=== PATIENT | female | born 1945 | race Caucasian/White ===

== ENCOUNTER 2018-03-16 12:22 | Outpatient (CLI) | payer MEDICARE, BC, OTHER ==
[2018-03-16 13:43] LABS: #Eosinphils 0.1 thou/uL (0.0-0.7); #Lymphocytes 1.8 thou/uL (1.20-3.40); #Monocytes 0.7 thou/uL (0.11-0.59); #Neutrophils 7.7 thou/uL (1.40-6.50); %Basophils 0.4 % (0.0-1.0); %Eosinophils 0.6 % (0.0-10.0); %Lymphocytes 17.8 % (21.0-51.0); %Monocytes 6.5 % (0.0-10.0); %Neutrophils 74.8 % (42.0-75.0); Bilirubin Negative (Negative); Blood, Urine Negative (Negative); Clarity CLOUDY (Clear); Glucose, Urine (Dipstick) Negative (Negative); Hemoglobin 13.8 g/dL (12.0-16.0); Leukocyte Large (Negative); Mean Corpuscular HGB CONC 34.7 g/dL (32.0-36.0); Mean Corpuscular Hemoglobin 32.4 pg (27.0-31.0); Mean Corpuscular Volume 93.4 fL (78.0-98.0); Mean Platelet Volume 6.6 fL (7.4-10.4); Nitrite Negative (Negative); Platelet Count 306 thou/uL (130-400); Protein, Urine (Dipstick) Negative (Neg-Trace); RBC Distribution Width 12.2 % (11.5-14.5); Red Blood Cell (RBC) Count 4.27 mill/uL (4.20-5.40); Specific Gravity, Urine 1.025 (1.002-1.036); Urobilinogen 0.2 mg/dL (0.2-1.0); White Blood Cell (WBC) Count 10.3 thou/uL (4.8-10.8); pH, Urine 5.5 (5.0-9.0)
[2018-03-16 13:53] LABS: INR-International Normal Ratio 0.9; Prothrombin Time 12.1 SEC (12.0-14.7)
[2018-03-16 14:06] LABS: Anion Gap 13 mmol/L (10-20); BUN (Urea Nitrogen) 20 mg/dL (9.8-20.1); Calc. Creatinine Clearance 0 mL/min (70-130); Calcium 9.9 mg/dL (7.8-10.44); Carbon Dioxide 27 mmol/L (23-31); Chloride 104 mmol/L (98-107); Estimated GFR-MDRD 81; Glucose 104 mg/dL (83-110); Potassium 4.4 mmol/L (3.5-5.1); Sodium 140 mmol/L (136-145)
[2018-03-16 14:13] LABS: Bacteria/HPF None Seen HPF (None Seen); Hyaline Casts/LPF NONE SEEN LPF (0-3 Hyaline); RBC/HPF 0-3 HPF (0-3); Squamous Epithelial 0-3 HPF (0-3)
== END 2018-03-16 12:23 | disposition home or self-care (01) ==
LOC: LABBT 12:22
PROVIDERS: ATTEND Orthopaedic Surgery
DX: Z01.818 Encounter for other preprocedural examination (principal); M17.11 Unilateral primary osteoarthritis, right knee
CPT/HCPCS: 80048; 81001; 85025; 85610; 86850; 86900; 86901; 87081; 87086; 93005; 93010

== ENCOUNTER 2018-03-20 05:28 | Day surgery (SDC) | payer MEDICARE, BC, OTHER ==
[2018-03-16 12:42] VITALS: BMI 25.4
[2018-03-20] MEDS ORDERED: Sodium Chloride 0.9% 100 ML ONE (06:10)
[2018-03-20] MEDS ORDERED: CEFAZOLIN/Water 2 GM/20 ML SYRINGE ONE (06:11)
[2018-03-20] MEDS ORDERED: Midazolam HCl 2 mg/2 ml Vial ONE (06:35)
[2018-03-20] MEDS ORDERED: Fentanyl 100 MCG/2 ML VIAL ONE ×4 (06:35→09:57)
[2018-03-20] MEDS ORDERED: Lidocaine 1% (PF) 30 ML VIAL ONE (06:36)
[2018-03-20] MEDS ORDERED: Ropivacaine 0.5% HCl/PF (150 MG/30 ML VIAL) ONE (06:36)
[2018-03-20] MEDS ORDERED: Promethazine HCl 25 MG/ML VIAL IM PRN ×3 (07:27→09:50)
[2018-03-20] MEDS ORDERED: Zolpidem Tartrate 5 MG TAB PO PRN ×2 (07:27→07:37)
[2018-03-20] MEDS ORDERED: Fentanyl 100 MCG/2 ML VIAL SLOW IVP PRN (07:27)
[2018-03-20] MEDS ORDERED: HYDROcodone/Acetaminophen 10/325 mg Tablet PO PRN ×2 (07:27)
[2018-03-20] MEDS ORDERED: traMADol HCl 50 MG TAB PO PRN ×2 (07:27→07:37)
[2018-03-20] MEDS ORDERED: Acetaminophen 325 MG TAB PO PRN (07:27)
[2018-03-20] MEDS ORDERED: diphenhydrAMINE 25 MG CAP PO PRN (07:27)
[2018-03-20] MEDS ORDERED: Ondansetron HCl/PF 4 MG/2 ML Vial IVP PRN ×3 (07:27→09:50)
[2018-03-20] MEDS ORDERED: Tranexamic Acid 1,000 MG in Sodium Chloride 0.9% 100 ML IVPB SCH (07:30)
[2018-03-20] MEDS ORDERED: Acetaminophen/Codeine 30-300mg Tablet PO PRN (07:36)
[2018-03-20] MEDS ORDERED: Ropivacaine HCl/PF 250 ML in Premix Bag 1 BAG NERVE BLCK SCH (07:37)
[2018-03-20] MEDS ORDERED: Ketorolac Tromethamine 30 MG/ML VIAL IVP PRN (07:37)
[2018-03-20] MEDS ORDERED: Fentanyl 100 MCG/2 ML VIAL IV PRN (07:38)
[2018-03-20] MEDS ORDERED: Bupivacaine/Epinephrine 0.25% 30 ML VIAL ONE (07:54)
[2018-03-20] MEDS ORDERED: Bupivacaine PF 0.5% 30 ML VIAL ONE (07:56)
[2018-03-20] MEDS ORDERED: Exenatide Microspheres [Bydureon Pen] 2 MG SC SCH (08:15)
--- NOTE | 2018-03-20 09:28 | OP ---
DATE OF PROCEDURE: 03/20/2018 PREOPERATIVE DIAGNOSIS: Right knee osteoarthrosis. POSTOPERATIVE DIAGNOSIS: Right knee osteoarthrosis. PROCEDURE PERFORMED: Right total knee replacement using Quu pinless navigation. SURGEON: Leonardo Robins M.D. JEWEL GRINDER: Lars Boone PA-C. BLOOD LOSS: Minimal. COMPLICATIONS: None. ANESTHETIC: The patient did have a general anesthetic; she also had preoperative blocks. IMPLANTS: To the right knee, Sharon [employer]lon total knee system, the femur was a size 3 cruciate-re taining femur. We used a size 3 universal tibial baseplate. We used a 3 x 9 mm CS tibial-bearing an d we used a 27 x 8 symmetric X3 patella. DISPOSITION: She did go to recovery room in stable condition. INDICATIONS: This 72-year-old female comes in complaining of increasing pain over the last 6 months or so and constant swelling in the right knee. She has had injections, and at this time is presentin for knee replacement. PROCEDURE IN DETAIL: After all appropriate consent forms were explained and signed, the patient was taken back to the Operating Room and at this time was given general anesthetic. Once the level of an esthesia was appropriate, a well-padded tourniquet was placed on the right leg and the leg was then p repped and draped in standard surgical fashion. The limb was exsanguinated and tourniquet taken up t o 300 mmHg. Midline incision was made with a 10 blade down through the skin and subcutaneous tissue. Bovie electrocautery was used to coagulate any brisk venous bleeding. A new blade was used to make a medial parapatellar arthrotomy. Small subperiosteal release was performed medially and excess fat pad was removed. The knee was flexed up to gain access to the femur. The femur was navigated and d istal femoral resection was made. Epicondylar access was used to align our sizing jig and this was p inned in place. We sized our femur to be a size 3 cruciate-retaining femur, 4:1 cutting block was ap plied and pinned. Anterior and posterior chamfer cuts were then made. We navigated out our proximal tibia and made our proximal tibial resection. Spreaders were used to remove any posterior osteophyt es off the back of the femur as well as remaining meniscal tissue. A long alignment abdullahi was then use d to achieve correct rotation of our tibial baseplate and a size 3 universal tibial baseplate was karol silverman. This was pinned in place. We trialed the polyethylene and a 3 x 9 mm CS tibial-bearing polyeth ylene gave us full extension and good stability throughout range of motion. Two towel clips and a sa w were used to cut our patella. Three lug nuts were drilled and 27 x 8 symmetric X3 patella was tria led, which sat nicely in the trochlear groove. We then drilled our femur and punched our tibia. All components were removed. The knee was thoroughly irrigated and dried. Cement was mixed into the ce ment gun on the back table. Components were then placed. The knee was held out in full extension un til the cement had dried. All excess bone cement was removed. Multiple #2 Vicryl stitches as well a s a Quill was used to close our extensor mechanism. 0 Quill followed by a running Monoderm was then used to close the skin. Surgicel glue was then used on the skin. Once this had dried, soft tissue d ressing was applied to the limb, tourniquet was let down, and the toes pinked up nicely. The patient was then awakened and taken to the Recovery Room in stable condition. All counts were correct at th e end of the case. The patient did receive preoperative IV antibiotics. The patient was injected wi th Exparel for postoperative pain relief.
[2018-03-20] MEDS ORDERED: Promethazine HCl 25 MG/ML VIAL ONE (09:40)
[2018-03-20] MEDS ORDERED: Promethazine HCl 25 MG/ML VIAL SLOW IVP PRN (09:50)
[2018-03-20] MEDS ORDERED: Bupivacaine 0.25% HCL 30 ML VIAL ONE (10:38)
[2018-03-20] MEDS ORDERED: Lidocaine 1% PF 5 ML VIAL ONE (10:46)
[2018-03-20] MEDS ORDERED: PHENYLEPHRINE-NS 100 MCG/ML 10 ML SYRINGE ONE (10:46)
[2018-03-20] MEDS ORDERED: Ondansetron HCl/PF 4 MG/2 ML Vial ONE (10:46)
[2018-03-20] MEDS ORDERED: PROPOFOL 200 MG/20 ML VIAL ONE (10:46)
[2018-03-20] MEDS: Acetaminophen/Codeine 30-300mg Tablet PO PRN ×2 (11:49→18:11)
[2018-03-20] MEDS: Aspirin 81 mg Enteric Coated Tablet PO SCH ×2 (11:58→22:00)
[2018-03-20] MEDS ORDERED: Dextrose 5% in Water 1,000 ML IV PRN (13:23)
[2018-03-20] MEDS ORDERED: Insulin Regular 300 UNITS/3 ML VIAL SC PRN (13:23)
[2018-03-20] MEDS ORDERED: Dextrose 50% Abboject 50 ML SYRINGE SLOW IVP PRN (13:23)
[2018-03-20] MEDS ORDERED: CEFAZOLIN/Water 2 GM/20 ML SYRINGE SLOW IVP SCH (14:00)
[2018-03-20] MEDS: Ketorolac Tromethamine 30 MG/ML VIAL IVP SCH ×2 (16:06→22:00)
[2018-03-20] MEDS: traMADol HCl 50 MG TAB PO PRN (16:07)
[2018-03-20] MEDS: CEFAZOLIN/Water 2 GM/20 ML SYRINGE SLOW IVP SCH (16:08)
[2018-03-20] MEDS: Sodium Chloride 0.9% 1,000 ML IV SCH ×2 (16:34→19:54)
--- NOTE | 2018-03-20 18:52 | CON ---
DATE OF SERVICE: 03/20/2018 ADMITTING PHYSICIAN: Leonardo Robins M.D. CONSULTING PHYSICIAN: David Luna M.D. HISTORY OF PRESENT ILLNESS: The patient is a 72-year-old female status post right total knee replace ment surgery. She has a history of type 2 diabetes mellitus which has been well controlled over the last 2 years. She reports no medical complaints since her surgery and no medical complaints at this time. She reports no cough, shortness of breath, chest pain, otherwise. ALLERGIES: She is allergic to MORPHINE and HYDROCODONE. CURRENT MEDICATIONS: Mirapex, omeprazole, multivitamins, Bydureon as well as enalapril. PAST MEDICAL HISTORY: Positive for type 2 diabetes mellitus. REVIEW OF SYSTEMS: Otherwise, negative. PHYSICAL EXAMINATION: VITAL SIGNS: Blood pressure 120/74, pulse 80, respirations 16, O2 sats 98% on room air. GENERAL: She is alert, active, in no distress. LUNGS: Clear. HEART: Reveals a regular rate and rhythm without murmurs, gallops or rubs. ABDOMEN: Soft, nontender, bowel sounds are active. No hepatosplenomegaly is noted. EXTREMITIES: No clubbing, edema or cyanosis. There is an operative dressing placed on the right kne e at this time. IMPRESSION: This is a 72-year-old female status post right total knee replacement surgery, has histo ry of type 2 diabetes mellitus. PLAN: 1. She will continue her on her current medications at this time. 2. Add sliding scale insulin and Accu-Chek.
[2018-03-20] MEDS ORDERED: Vancomycin HCl 1.5 GM in Sodium Chloride 0.9% 250 ML 300 ML IVPB SCH (19:00)
[2018-03-20] MEDS ORDERED: Pramipexole Di-HCl 0.25 MG TAB PO SCH (21:00)
[2018-03-21] MEDS: CEFAZOLIN/Water 2 GM/20 ML SYRINGE SLOW IVP SCH (00:55)
[2018-03-21] MEDS: Sodium Chloride 0.9% 1,000 ML IV SCH ×2 (03:20→13:55)
[2018-03-21] MEDS: Ketorolac Tromethamine 30 MG/ML VIAL IVP SCH ×3 (05:03→14:24)
[2018-03-21] MEDS: Acetaminophen/Codeine 30-300mg Tablet PO PRN ×2 (05:04→11:39)
[2018-03-21 05:12] LABS: Hemoglobin 11.1 g/dL (12.0-16.0); Mean Corpuscular HGB CONC 33.4 g/dL (32.0-36.0); Mean Corpuscular Volume 95.8 fL (78.0-98.0); Mean Platelet Volume 6.6 fL (7.4-10.4); Platelet Count 234 thou/uL (130-400); Red Blood Cell (RBC) Count 3.48 mill/uL (4.20-5.40); White Blood Cell (WBC) Count 10.4 thou/uL (4.8-10.8)
[2018-03-21] MEDS ORDERED: Ferrous Gluconate 324 MG TAB PO SCH (09:00)
[2018-03-21] MEDS ORDERED: Senokot S 8.6-50 MG TAB PO SCH (09:00)
[2018-03-21] MEDS ORDERED: Multivitamin W/ Minerals 1 TAB PO SCH (09:00)
[2018-03-21] MEDS: Aspirin 81 mg Enteric Coated Tablet PO SCH (09:30)
[2018-03-21] MEDS: traMADol HCl 50 MG TAB PO PRN (09:38)
[2018-03-21 11:31] VITALS: BP 118/68; TEMP 97.5
--- NOTE | 2018-03-21 11:47 | PRG ---
DATE OF SERVICE: 03/21/2018 SUBJECTIVE: Ms. Swain is doing well. She is sitting up in a chair. She notes no pain. PHYSICAL EXAMINATION: VITAL SIGNS: Temperature 99.2, BP 104/63. LUNGS: Clear. HEART: Reveals a regular rate and rhythm without murmurs, gallops, or rubs. LABORATORY DATA: Hemoglobin 11.1, hematocrit 33.3. White blood count 10.4, blood sugar control is u nder good control. IMPRESSION: Status post left total knee replacement. PLAN: The patient is doing well. She could be discharged home medically at any time, should continu e her home medications.
[2018-03-21] MEDS ORDERED: Ropivacaine 0.2% 550 ML 550 ML NERVE BLCK SCH (12:45)
== END 2018-03-21 15:35 | disposition home or self-care (01) ==
LOC: SDC 05:28 → SJJU 07:27 → SDC 03-21 15:35
PROVIDERS: ATTEND Orthopaedic Surgery
PROC: 0SRC0J9 Replacement of Right Knee Joint with Synthetic Substitute, Cemented, Open Approach (ICD-10-PCS; principal; 2018-03-20)
DX: M17.11 Unilateral primary osteoarthritis, right knee (principal); E11.9 Type 2 diabetes mellitus without complications; Z96.652 Presence of left artificial knee joint; Z88.5 Allergy status to narcotic agent; Z79.899 Other long term (current) drug therapy
CPT/HCPCS: 27447; 82962; 85027; 97110; 97116 ×2; 97139; 97530 ×2; A4306; C1713; C1776; G8978; G8979; 36415; 36416; J1885; J2001; J2250; J2405; J2550; J2704; J2795; J3010; J3370; J7050; S0020

== ENCOUNTER 2018-04-02 16:33 | Emergency (ER) | payer MEDICARE, BC, OTHER ==
[2018-04-02] MEDS ORDERED: Mineral Oil ENEMA ONE (17:16)
--- NOTE | 2018-04-02 17:35 | RAD ---
RADIOGRAPH CHEST 1 VIEW RADIOGRAPH ABDOMEN 2 VIEWS: HISTORY: A 72-year-old female with vomiting and constipation. FINDINGS: There are no air space densities or pulmonary edema. The lateral costophrenic angles are sharp. There is no cardiomegaly. There is no evidence of pneumothorax or pneumoperitoneum. There is no evidence of dilated small bowel loops, differential air/fluid levels, or organomegaly. IMPRESSION: 1) No acute cardiopulmonary findings. 2) No evidence of bowel obstruction. jn [] POS: JIN
== END 2018-04-02 18:20 | disposition home or self-care (01) ==
LOC: SCSER 16:33
DX: K59.00 Constipation, unspecified (principal); E11.9 Type 2 diabetes mellitus without complications
CPT/HCPCS: 74022